=== PATIENT | male | born 2000 | race Caucasian/White ===

== ENCOUNTER 2024-07-04 19:42 | Emergency (ER) | payer BC, SELFPAY ==
--- NOTE | ~2024-07-04 | XR_ITS ---
EXAMINATION: XR foot LT min 3V DATE: 07/04/2024 20:11 INDICATION: Left foot injury. TECHNIQUE: 4 views of left foot were obtained. COMPARISON: None. FINDINGS: Bone alignment. No fracture. Joint spaces are normal. IMPRESSION: 1. No fracture. Reviewed, dictated and finalized at location A. IMPRESSION: 1. No fracture.
[2024-07-04 19:57] VITALS: BP 111/48; PULSE 64; RESP 16; TEMP 36.6; O2SAT 100
--- NOTE | 2024-07-04 20:20 | ED.LOWEXIN ---
HPI - Extremity Injury (Lower) General Chief Complaint: Extremity Injury, Lower Stated Complaint: Left Foot Pain Time Seen by Provider: 07/04/24 20:20 Source: patient, RN notes reviewed and old records reviewed Mode of arrival: ambulatory Limitations: no limitations History of Present Illness HPI Narrative: patient complains of pain to left lateral foot, dorsal aspect after being hit with a hockey puck several hours ago. He denies other injury and trauma. He has been taking ibuprofen and applying ice to the affected area. He is observed ambulating without difficulty. He voices no other concerns or complaints at this time. Related Data Allergies Allergy/AdvReac Type Severity Reaction Status Date / Time No Known Allergies Allergy Unverified 02/18/18 16:26 Review of Systems Review of Systems: All systems reviewed & are unremarkable except as noted in HPI and below Constitutional: Constitutional: Reports no additional constitutional complaints ENT: Reports system reviewed and no additional complaints, except as documented Cardiovascular: Cardiovascular: Reports no additional cardiovascular complaints Respiratory: Respiratory: Reports no additional respiratory complaints Gastrointestinal: Gastrointestinal: Reports no additional gastrointestinal complaints Musculoskeletal: Musculoskeletal: Reports no additional musculoskeletal complaints and Reports as per HPI Comments: left foot pain Exam Const: General: cooperative, no acute distress, alert and awake Orientation/consciousness: oriented to person, oriented to place and oriented to time HENMT: Head: normal to inspection Resp: Effort & Inspection: normal respiratory effort and able to speak in complete sentences Auscultation: clear to auscultation bilaterally, no crackles, no rales, no rhonchi and no wheezes Cardio: Palpation: normal PMI Rate: regular rate Rhythm: regular rhythm Heart sounds: S1 normal heart sound present and S2 normal heart sound present Neuro: General: oriented to person, oriented to place and oriented to time Cranial nerves: Yes CN's II-XII intact bilaterally Extrem: Left lower extremity: foot Details: normal capillary refill, normal to inspection, tenderness (lateral, dorsal aspect) and toes with normal ROM Psych: Appearance: grossly normal Thought process: Normal thought process present Insight: Good insight present (Psych) Judgement: Good judgement present (Psych) Course Course Level of Care: Express Care Visit Vital Signs Vital signs: Vital Signs Temperature 98 F 07/04/24 19:57 Pulse Rate 64 07/04/24 19:57 Respiratory Rate 16 07/04/24 19:57 Blood Pressure 111/48 L 07/04/24 19:57 Pulse Oximetry 100 07/04/24 19:57 Temperature 98 F 07/04/24 19:57 Pulse Rate 64 07/04/24 19:57 Respiratory Rate 16 07/04/24 19:57 Blood Pressure 111/48 L 07/04/24 19:57 Pulse Oximetry 100 07/04/24 19:57 MDM - Extremity Injury (Lower) MDM Narrative Medical decision making narrative: Left foot injury with negative x-ray. Ricardo wrap applied. Continue MEHTA therapy. Follow up with primary care provider. Discharge instructions reviewed with patient, as well as provided in writing per nursing staff. The instructions also include specific and strict return/GO TO THE ER as well as f/u information. All questions have been answered, and the patient deny any further questions with discharge and discharge plan. Some parts of this dictation were generated by voice recognition software and may contain typographical and/or grammatical inaccuracies. Differential Diagnosis Differential diagnosis: Likely other (Contusion, foot fracture, foot injury) Medical Records Attestation: I reviewed the patient's medical records. Imaging Data Attestation: I personally reviewed and interpreted this imaging study as follows: My impression: negative x-ray Radiologist's impression: [facility] [id number] [facility]
== END 2024-07-04 20:35 | disposition home or self-care (01) ==
PROVIDERS: Emergency Provider Nurse Practitioner Family
DX: S90.32XA Contusion of left foot, initial encounter (principal); W21.220A Struck by ice hockey puck, initial encounter
CPT/HCPCS: 73630; 99213; G0463